=== PATIENT | female | born 1970 | race Caucasian/White ===

== ENCOUNTER → 2020-12-25 | Outpatient (CLI) | payer OTHER ==
[~2020-12-25] MED LIST: ELIQUIS2.5 MG PO; ENDOCET 7.5-321 EACH PO; NICOTINE PATCH1 EAC2 TD
[2020-12-25 11:23] LABS: HEMOGLOBIN 13.4 gm/dl (12.3-15.3); RED BLOOD COUNT 4.51 M/UL (4.00-5.10); WHITE BLOOD COUNT 8.4 K/UL (4.5-11.0)
[2020-12-25 11:39] LABS: BUN/CREATININE RATIO 12 (0-10)
== END ==
LOC: EDSTATUS 10:00 → OPSV2 10:00
PROVIDERS: Orthopaedic Surgery
DX: Z01.818 Encounter for other preprocedural examination (principal); M16.11 Unilateral primary osteoarthritis, right hip; Z95.0 Presence of cardiac pacemaker
CPT/HCPCS: 80048; 81001; 85025; 87077; 87081; 87086; 87186; 93005

== ENCOUNTER → 2021-01-05 | Outpatient (CLI) | payer OTHER ==
[2021-01-05 17:40] LABS: BUN/CREATININE RATIO 18 (0-10)
== END ==
LOC: LAB 15:35
PROVIDERS: Orthopaedic Surgery
DX: Z01.812 Encounter for preprocedural laboratory examination (principal)
CPT/HCPCS: 80048; 86850; 86900; 86901

== ENCOUNTER 2021-01-06 06:34 | Day surgery (SDC) | payer OTHER ==
[~2021-01-06] VITALS: Ht 170.2 cm; Wt 77.1 kg
[2021-01-06] MEDS ORDERED: ELIQUIS2.5 MG PO (08:23)
[2021-01-06] MEDS ORDERED: ENDOCET 7.5-321 EACH PO (08:23)
--- NOTE | 2021-01-06 16:33 | NUR ---
INSTRUCTED PATIENT ON BED OPERATION, SEPSIS AND RAPID RESPONSE, CALL LIGHT USE AND THERMOSTAT IN ROOM. VERBALIZED UNDERSTANDING, JUWAN VILLAGOMEZ R.N.
[2021-01-07 04:04] LABS: HEMOGLOBIN 9.5 gm/dl (12.3-15.3); RED BLOOD COUNT 3.23 M/UL (4.00-5.10); WHITE BLOOD COUNT 15.9 K/UL (4.5-11.0)
[2021-01-07 04:27] LABS: BUN/CREATININE RATIO 18 (0-10)
[2021-01-07] MEDS ORDERED: NICOTINE PATCH1 EAC2 TD (10:22)
[2021-01-08 05:24] LABS: HEMOGLOBIN 8.6 gm/dl (12.3-15.3); RED BLOOD COUNT 2.91 M/UL (4.00-5.10)
[2021-01-08 05:29] LABS: WHITE BLOOD COUNT 9.6 K/UL (4.5-11.0)
[2021-01-08 05:44] LABS: BUN/CREATININE RATIO 13 (0-10)
--- NOTE | 2021-01-08 10:29 | NUR ---
INSTRUCTED ON IMPORTANCE OF STOPPING SMOKING. SAFETY IN THE [place]. TAKE ALL MEDS ORDERED. KEEP FOLLOW UP APPOINTMENTS. JUWAN VILLAGOMEZ R.N.
== END 2021-01-08 14:41 | disposition home health service (06) ==
LOC: ZOBSOF 06:34 → OR 06:34 → M/S 11:18 → ZOBSOF 11:18 → EDSTATUS 11:30 → EDBD 11:30 → M/S 01-08 14:41 → OR 01-08 14:41
PROVIDERS: Orthopaedic Surgery
PROC: 3E0T3BZ Introduction of Anesthetic Agent into Peripheral Nerves and Plexi, Percutaneous Approach (ICD-10-PCS; 2021-01-06)
PROC: 0SR90JA Replacement of Right Hip Joint with Synthetic Substitute, Uncemented, Open Approach (ICD-10-PCS; principal; 2021-01-06 08:15)
DX: M16.11 Unilateral primary osteoarthritis, right hip (principal); G89.18 Other acute postprocedural pain; F17.210 Nicotine dependence, cigarettes, uncomplicated; I48.91 Unspecified atrial fibrillation; I51.9 Heart disease, unspecified; Z20.822 Contact with and (suspected) exposure to COVID-19; Z95.0 Presence of cardiac pacemaker; Z88.5 Allergy status to narcotic agent; Z95.5 Presence of coronary angioplasty implant and graft
CPT/HCPCS: 36415; 73501; 73502; 76000; 80048; 85027; 86850; 86900; 86901; 97116-GP-CQ; 97161; 97166; 97535; C1776; J0690; J1100; J2250; J2270; J2405; J2704; J2795; J3010; J3370; J7030; J7050; J7120